=== PATIENT | male | born 1955 | race African-American/Black ===

== ENCOUNTER → 2021-03-13 | Outpatient (CLI) | payer BC ==
--- NOTE | 2021-03-13 09:37 | RAD ---
EXAM: Abdomen sonogram. HISTORY: Palpable lump within the back. TECHNIQUE: Sonographic imaging of the posterior thorax the site of palpable concern was performed. COMPARISON: None. FINDINGS: There is a circumscribed nonvascular solid mass within the subcutaneous soft tissues of the posterior thorax at the site of palpable concern measuring 8.0 x 6.4 x 2.0 cm. IMPRESSION: 8.0 cm mass within the posterior thoracic soft tissues at the site of palpable concern, t he appearance of which favors a lipoma or capsulitis fat. Continued clinical follow-up of palpable ab normalities is recommended. Electronically signed by: Tyra Joshi MD (03/13/2021 9:34 AM) [id number]
== END ==
LOC: US 08:57
PROVIDERS: ATTEND Physician Assistant Medical
DX: R22.2 Localized swelling, mass and lump, trunk (principal)
CPT/HCPCS: 76705